=== PATIENT | female | born 1995 | race Caucasian/White ===

== ENCOUNTER → 2016-12-11 | Outpatient (CLI) | payer BC, OTHER ==
[~2016-12-11] MED LIST: ACETAMINOPHEN TAB 500 MG TAB PO NR; LORATADINE 10 MG TAB PO NR; SODIUM CHLORIDE 0.9% 250 ML in EMPTY BAG 1 BAG IV PRN; SODIUM CHLORIDE 0.9% 500 ML in EMPTY BAG 1 BAG IV PRN
[2016-12-11 11:07] VITALS: RESP 16; TEMP 98.3
[2016-12-11 12:43] VITALS: BP 118/65; PULSE 89
== END | disposition home or self-care (01) ==
LOC: PROCWHC3 10:53
PROVIDERS: ATTEND Internal Medicine Gastroenterology
DX: K51.90 Ulcerative colitis, unspecified, without complications (principal)
CPT/HCPCS: 96361; 96413; 96415; J1745

== ENCOUNTER → 2017-01-22 | Outpatient (CLI) | payer BC, OTHER ==
[~2017-01-22] MED LIST changes: -ACETAMINOPHEN TAB 500 MG TAB PO NR; -LORATADINE 10 MG TAB PO NR
[2017-01-22 11:47] VITALS: TEMP 98.5
[2017-01-22 12:23] VITALS: RESP 18
[2017-01-22 12:57] VITALS: BP 117/77; PULSE 68
== END | disposition home or self-care (01) ==
LOC: PROCWHC3 10:49
PROVIDERS: ATTEND Internal Medicine Gastroenterology
DX: K51.90 Ulcerative colitis, unspecified, without complications (principal)
CPT/HCPCS: 96361; 96413; 96415; J1745

== ENCOUNTER → 2017-03-05 | Outpatient (CLI) | payer BC, OTHER ==
[~2017-03-05] MED LIST changes: +ACETAMINOPHEN TAB 500 MG TAB PO ONE; +LORATADINE 10 MG TAB PO ONE
[2017-03-05 11:21] VITALS: TEMP 97.9
[2017-03-05 12:16] VITALS: RESP 18
[2017-03-05 12:47] VITALS: BP 138/98; PULSE 67
== END | disposition home or self-care (01) ==
LOC: PROCWHC3 10:53
PROVIDERS: ATTEND Internal Medicine Gastroenterology
DX: K51.90 Ulcerative colitis, unspecified, without complications (principal)
CPT/HCPCS: 96413; 96415; J1745

== ENCOUNTER → 2017-04-16 | Outpatient (CLI) | payer BC, OTHER ==
[2017-04-16 11:23] VITALS: TEMP 98
[2017-04-16 13:54] VITALS: BP 142/91; PULSE 67; RESP 16
== END | disposition home or self-care (01) ==
LOC: PROCWHC3 10:57
PROVIDERS: ATTEND Internal Medicine Gastroenterology
DX: K50.90 Crohn's disease, unspecified, without complications (principal)
CPT/HCPCS: 96413; 96415; J1745

== ENCOUNTER → 2017-04-28 | Outpatient (CLI) | payer BC, OTHER ==
[~2017-04-28] MED LIST changes: -ACETAMINOPHEN TAB 500 MG TAB PO ONE; +COSYNTROPIN 0.25 MG VIAL IVP ONE; -LORATADINE 10 MG TAB PO ONE
[2017-04-28 09:32] VITALS: BP 156/94; PULSE 59; RESP 16; TEMP 97.6
[2017-04-29 07:40] LABS: EBV - EA (IgG) 6.7 U/mL (<9.0); EBV - VCA (IgG) >750.0 U/mL (<18.0); EBV - VCA IgM 11.5 U/mL (<36.0)
[2017-05-05 14:57] LABS: Mis test requested (Blood) CATECHOL FRAC PLASMA
== END | disposition home or self-care (01) ==
LOC: PROCWHC3 09:02
PROVIDERS: ATTEND Family Medicine
DX: I10 Essential (primary) hypertension (principal); R53.82 Chronic fatigue, unspecified
CPT/HCPCS: 36415; 82306; 82384; 84439; 84443; 85652; 86663; 86664; 86665

== ENCOUNTER → 2017-05-28 | Outpatient (CLI) | payer BC, OTHER ==
[~2017-05-28] MED LIST changes: +ACETAMINOPHEN TAB 500 MG TAB PO ONE; -COSYNTROPIN 0.25 MG VIAL IVP ONE; +LORATADINE 10 MG TAB PO ONE
[2017-05-28 11:30] VITALS: TEMP 98.3
[2017-05-28 13:26] VITALS: BP 124/61; PULSE 72; RESP 20
== END | disposition home or self-care (01) ==
LOC: PROCWHC3 10:57
PROVIDERS: ATTEND Internal Medicine Gastroenterology
DX: K51.00 Ulcerative (chronic) pancolitis without complications (principal)
CPT/HCPCS: 96413; 96415; J1745

== ENCOUNTER → 2017-07-09 | Outpatient (CLI) | payer BC, OTHER ==
[~2017-07-09] MED LIST changes: -ACETAMINOPHEN TAB 500 MG TAB PO ONE; -LORATADINE 10 MG TAB PO ONE; -SODIUM CHLORIDE 0.9% 250 ML in EMPTY BAG 1 BAG IV PRN
[2017-07-09 11:23] VITALS: TEMP 98.3
[2017-07-09 12:34] VITALS: RESP 18
[2017-07-09 13:08] VITALS: BP 118/63; PULSE 91
== END | disposition home or self-care (01) ==
LOC: PROCWHC3 10:46
PROVIDERS: ATTEND Internal Medicine Gastroenterology
DX: K51.00 Ulcerative (chronic) pancolitis without complications (principal)
CPT/HCPCS: 96413; 96415

== ENCOUNTER → 2017-08-20 | Outpatient (CLI) | payer BC, OTHER ==
[~2017-08-20] MED LIST changes: +ACETAMINOPHEN TAB 500 MG TAB PO ONE; +LORATADINE 10 MG TAB PO ONE
[2017-08-20 11:12] VITALS: TEMP 97.7
[2017-08-20 12:33] VITALS: RESP 16
[2017-08-20 13:00] VITALS: BP 134/78; PULSE 83
== END | disposition home or self-care (01) ==
LOC: PROCWHC3 10:48
PROVIDERS: ATTEND Internal Medicine Gastroenterology
DX: K51.00 Ulcerative (chronic) pancolitis without complications (principal)
CPT/HCPCS: 96413; 96415; J1745

== ENCOUNTER → 2017-10-01 | Outpatient (CLI) | payer BC, OTHER ==
[~2017-10-01] MED LIST changes: -ACETAMINOPHEN TAB 500 MG TAB PO ONE; -LORATADINE 10 MG TAB PO ONE
[2017-10-01 11:34] VITALS: RESP 16; TEMP 98
[2017-10-01 12:59] VITALS: BP 148/91; PULSE 82
== END ==
LOC: PROCWHC3 10:54
PROVIDERS: ATTEND Internal Medicine Gastroenterology
DX: K51.00 Ulcerative (chronic) pancolitis without complications (principal)
CPT/HCPCS: 96413; 96415; J1745

== ENCOUNTER 2017-11-14 13:44 | Emergency (ER) | payer BC ==
[~2017-11-14 13:44] MED LIST changes: +SODIUM CHLORIDE 0.9% 1,000 ML BAG ONE; -SODIUM CHLORIDE 0.9% 500 ML in EMPTY BAG 1 BAG IV PRN
[2017-11-14] MEDS ORDERED: ONDANSETRON 4 MG/2 ML VIAL ONE (16:35)
[2017-11-14] MEDS ORDERED: ACETAMINOPHEN IV (For NPO) 1,000 MG/100 ML VIAL ONE (16:35)
[2017-11-14] MEDS ORDERED: KETOROLAC 30 MG/ML 1 ML VIAL ONE (16:35)
[2017-11-15 16:05] LABS: ALT 40 U/L (9-52); AST 26 U/L (14-36); Albumin 4.6 g/dL (3.5-5.0); Alkaline Phosphatase 133 U/L (38-126); Amylase 41 U/L (30-110); Anion Gap 14 mmol/L; Blood Urea Nitrogen 10 mg/dL (7-17); Calcium 10.1 mg/dL (8.4-10.2); Carbon Dioxide 21 mmol/L (22-30); Chloride 104 mmol/L (98-107); Glucose 106 mg/dL (74-99); Lipase 36 U/L (23-300); Potassium 4.2 mmol/L (3.5-5.1); Sodium 139 mmol/L (137-145); Total Bilirubin 0.6 mg/dL (0.2-1.3); Total Protein 8.4 g/dL (6.3-8.2)
[2017-11-15 16:15] LABS: Basophils % (A) 0 %; Eosinophils % (A) 0 %; HCT 42.8 % (34.0-46.0); HGB 14.3 gm/dL (11.4-16.0); Lymphocytes # (A) 0.9 k/uL (1.0-4.8); Lymphocytes % (A) 7 %; MCH 28.4 pg (25.0-35.0); MCHC 33.5 g/dL (31.0-37.0); MCV 84.8 fL (80.0-100.0); Mean Platelet Volume 7.2; Monocytes # (A) 0.2 k/uL (0-1.0); Monocytes % (A) 1 %; Neutrophils # (A) 11.2 k/uL (1.3-7.7); Neutrophils % (A) 90 %; Platelet Count 381 k/uL (150-450); RBC 5.04 m/uL (3.80-5.40); RDW 12.2 % (11.5-15.5); WBC 12.4 k/uL (3.8-10.6)
[2017-11-15 16:40] LABS: Amorphous Sediment,Urine Few /hpf; Appearance,Urine Turbid (Clear); Bacteria,Urine Many /hpf; Bilirubin,Urine Negative (Negative); Blood,Urine Negative (Negative); Color,Urine Yellow; Glucose,Urine (UA) Negative (Negative); Ketones,Urine 1+ (Negative); Leukocyte Esterase,Urine Negative (Negative); Mucus,Urine Rare /hpf; Nitrite,Urine Negative (Negative); Protein,Urine 1+ (Negative); RBC,Urine 7 /hpf (0-5); Specific Gravity,Urine 1.021 (1.001-1.035); Squamous Epithelial Cell,Urine 4 /hpf (0-4); Urobilinogen,Urine <2.0 mg/dL (<2.0)
--- NOTE | 2017-12-23 09:54 | XR ---
EXAMINATION TYPE: XR chest 2V DATE OF EXAM: 12/23/2017 COMPARISON: NONE HISTORY: Headaches, dizziness, and weakness TECHNIQUE: Frontal and lateral views of the chest are obtained. FINDINGS: There is no focal air space opacity, pleural effusion, or pneumothorax seen. The cardiac silhouette size is within normal limits. The osseous structures are intact. IMPRESSION: No acute cardiopulmonary process.
== END 2017-11-14 18:37 | disposition home or self-care (01) ==
LOC: EC 13:44
DX: R42 Dizziness and giddiness (principal); R51 Headache; R11.2 Nausea with vomiting, unspecified; I10 Essential (primary) hypertension; Z79.899 Other long term (current) drug therapy
CPT/HCPCS: 36415; 80053; 81001; 81025; 82150; 83690; 85025; 96361; 96365; 96375; 99284

== ENCOUNTER → 2019-04-01 | Outpatient (CLI) | payer BC ==
--- NOTE | 2019-04-01 15:07 | US ---
EXAMINATION TYPE: US thyroid st tissue head/neck DATE OF EXAM: 04/01/2019 COMPARISON: MRI cervical spine June 13, 2014. CLINICAL HISTORY: E04.9 GOITER. GLAND SIZE: Right Lobe: 4.4 x 1.2 x 1.3 cm Overall Parenchyma: homogenous Left Lobe: 4.5 x 1.1 x 1.3 cm Overall Parenchyma: homogeneous Isthmus Thickness: 0.2 cm NODULES RIGHT: # of nodules measured on right: 0 LEFT: # of nodules measured on left: 0 ISTHMUS: # of nodules measured in the isthmus: 0 Bilateral neck scanned, no evidence of lymphadenopathy. There is homogeneous normal-sized thyroid without discrete nodules. Findings correlate with 2014 MRI. IMPRESSION: Unremarkable study.
== END | disposition home or self-care (01) ==
LOC: RADUSWWP 14:33
PROVIDERS: ATTEND Family Medicine
DX: E04.9 Nontoxic goiter, unspecified (principal)
CPT/HCPCS: 76536

== ENCOUNTER 2024-10-13 08:42 | Emergency (ER) | payer BC ==
[2024-10-13 08:50] VITALS: TEMP 98
--- NOTE | 2024-10-13 09:06 | ED ---
Skin/Abscess/FB HPI - General Source: patient, family, RN notes reviewed Mode of arrival: ambulatory Limitations: no limitations - History of Present Illness MD complaint: rash <Agustina Chen - Last Filed: 10/13/24 09:05> <Lizbeth Ambriz - Last Filed: 10/20/24 17:11> - General Chief complaint: Skin/Abscess/Foreign Body Stated complaint: blisters/burning on hands and feet Time Seen by Provider: 10/13/24 09:00 - History of Present Illness Initial comments: Quick Note: This is a 29-year-old female who presents to the emergency department for blisters on her hands, feet, and mouth. States that it started about 4 days ago. She did get a note from the school saying that hand, foot, and mouth were going around. The blisters are described as painful. (Agustina Chen) 29-year-old female presents to the emergency department for rash on hands, feet, mouth. She reports that has been going on for 4 days. She does report that it is very painful. Denies any itching. Denies any sloughing of the skin. Denies recent fever, chills. She does report that her daughter had 1 lesion that was similar. She also notes that he gvxi-vwva-okp-mouth is going around her daughter school. She does report that she is on Humira. (Lizbeth Ambriz) - Related Data Home Medications Medication Instructions Recorded Confirmed inFLIXimab [Remicade] 500 mg IVPB DIRECTED 10/01/16 11/15/17 amLODIPine [Norvasc] 10 mg PO DAILY 11/15/17 11/15/17 Previous Rx's Medication Instructions Recorded Cephalexin [Keflex] 500 mg PO Q6HR #40 cap 10/13/24 HYDROcodone/APAP 5-325MG [[place] 5] 1 each PO Q6HR PRN #12 tab 10/13/24 Allergies Allergy/AdvReac Type Severity Reaction Status Date / Time No Known Allergies Allergy Verified 10/13/24 08:50 Review of Systems ROS Other: All systems not noted in ROS Statement are negative. <Agustina Chen - Last Filed: 10/13/24 09:05> ROS Other: All systems not noted in ROS Statement are negative. <Lizbeth Ambriz - Last Filed: 10/20/24 17:11> ROS Statement: Those systems with pertinent positive or pertinent negative responses have been documented in the HPI. Past Medical History Past Medical History: No Reported History History of Any Multi-Drug Resistant Organisms: None Reported Past Surgical History: No Surgical Hx Reported Past Anesthesia/Blood Transfusion Reactions: No Reported Reaction Past Psychological History: No Psychological Hx Reported Smoking Status: Never smoker Past Alcohol Use History: None Reported Past Drug Use History: None Reported - Past Family History Mother Family Medical History: Musculoskeletal Disorder Brother(s) Family Medical History: Seizure Disorder <Agustina Chen - Last Filed: 10/13/24 09:05> General Exam Limitations: no limitations <Agustina Chen - Last Filed: 10/13/24 09:05> Limitations: no limitations General appearance: alert, in no apparent distress Head exam: Present: atraumatic, normocephalic, normal inspection Eye exam: Present: normal appearance, PERRL, EOMI. Absent: scleral icterus, conjunctival injection, periorbital swelling ENT exam: Present: normal exam, mucous membranes moist Respiratory exam: Present: normal lung sounds bilaterally. Absent: respiratory distress, wheezes, rales, rhonchi, stridor Cardiovascular Exam: Present: regular rate, normal rhythm, normal heart sounds. Absent: systolic murmur, diastolic murmur, rubs, gallop, clicks Extremities exam: Present: normal inspection, full ROM, normal capillary refill. Absent: tenderness, pedal edema, joint swelling, calf tenderness Neurological exam: Present: alert, oriented X3 Psychiatric exam: Present: normal affect, normal mood Skin exam: Present: warm, dry, rash (Erythematous maculopapular rash with vesicles on the hands, feet, circumorally). Absent: normal color <Lizbeth Ambriz - Last Filed: 10/20/24 17:11> - General Exam Comments Initial Comments: Visual Physical Exam Vital signs reviewed General: Well-appearing, nontoxic, no acute distress. Head: Normocephalic, atraumatic Eyes: PERRLA, EOMI ENT: Airway patent Chest: Nonlabored breathing Skin: No visual rash, normal skin tone Neuro: Alert and oriented 3 Musculoskeletal: No gross abnormalities (Agustina Chen) Course Vital Signs 10/13/24 10/13/24 08:48 11:54 Temperature 98 F Pulse Rate 116 H 99 Respiratory 18 20 Rate Blood Pressure 169/100 158/97 O2 Sat by Pulse 98 98 Oximetry Medical Decision Making <Agustina Chen - Last Filed: 10/13/24 09:05> <Lizbeth Ambriz - Last Filed: 10/20/24 17:11> - Medical Decision Making I performed the QuickNote portion of this chart. Signed Agustina Chen PA-C. (Agustina Chen) Was pt. sent in by a medical professional or institution (JOHANNE Smith, TECHNOLOGY MANAGER, urgent care, hospital, or long term...) When possible be specific @ -No Did you speak to anyone other than the patient for history (EMS, parent, family, police, friend...)? What history was obtained from this source @ -No Did you review nursing and triage notes (agree or disagree)? Why? @ -I reviewed and agree with nursing and triage notes Were old charts reviewed (outside hosp., previous admission, EMS record, old EKG, old radiological studies, urgent care reports/EKG's, long term records)? Report findings @ -No old charts were reviewed Differential Diagnosis (chest pain, altered mental status, abdominal pain women, abdominal pain men, vaginal bleeding, weakness, fever, dyspnea, syncope, headache, dizziness, GI bleed, back pain, seizure, CVA, palpatations, mental health, musculoskeletal)? @ -Gnox-grfb-vbf-mouth disease, impetigo, cellulitis, syphilis, this list is not all inclusive EKG interpreted by me (3pts min.). @ -None X-rays interpreted by me (1pt min.). @ -None done CT interpreted by me (1pt min.). @ -None done U/S interpreted by me (1pt. min.). @ -None done What testing was considered but not performed or refused? (CT, X-rays, U/S, labs)? Why? @ -None What meds were considered but not given or refused? Why? @ -None Did you discuss the management of the patient with other professionals (professionals i.e. , JOHANNE, TECHNOLOGY MANAGER, lab, RT, psych nurse, social media manager, maintenance repairman, teacher, trust officer, lining caser)? Give summary @ -No Was smoking cessation discussed for >3mins.? @ -No Was critical care preformed (if so, how long)? @ -No Were there social determinants of health that impacted care today? How? (Homelessness, low income, unemployed, alcoholism, drug addiction, transportation, low edu. Level, literacy, decrease access to med. care, fci, rehab)? @ -No Was there de-escalation of care discussed even if they declined (Discuss DNR or withdrawal of care, Hospice)? DNR status @ -No What co-morbidities impacted this encounter? (DM, HTN, Smoking, COPD, CAD, Cancer, CVA, ARF, Chemo, Hep., AIDS, mental health diagnosis, sleep apnea, morbid obesity)? @ -None Was patient admitted / discharged? Hospital course, mention meds given and route, prescriptions, significant lab abnormalities, going to OR and other pertinent info. @ -Discharge. Patient presented to the emergency department for evaluation of rash on hands, feet, and around mouth. Patient reports that this has been present for 4 days. She states that it is painful. Patient was provided medication for pain control while in the emergency department. On examination, patient appears to have kdrh-hwjb-mku-mouth disease. She also has some lesions surrounding her mouth that are consistent with impetigo. Patient is currently on immunosuppressive drugs for IBD. Because of this, patient will be started on Keflex for bacterial coverage. Patient also provided short-term dose of narcotic medication for pain control. Patient will be discharged home. Instructed on treatment plan. She is understanding agreeable with this plan. Patient stable at time of discharge. Case discussed with Dr. Kelly. Undiagnosed new problem with uncertain prognosis? @ -No Drug Therapy requiring intensive monitoring for toxicity (Heparin, Nitro, Insulin, Cardizem)? @ -No Were any procedures done? @ -No Diagnosis/symptom? @ -Axem-ihoz-kqx-mouth disease Acute, or Chronic, or Acute on Chronic? @ -Acute Uncomplicated (without systemic symptoms) or Complicated (systemic symptoms)? @ -Uncomplicated Side effects of treatment? @ -No Exacerbation, Progression, or Severe Exacerbation? @ -No Poses a threat to life or bodily function? How? (Chest pain, [place], [place], pneumonia, PE, COPD, DKA, ARF, appy, cholecystitis, CVA, Diverticulitis, Homicidal, Suicidal, threat to staff... and all critical care pts) @ -No (Lizbeth Ambriz) Disposition <Agustina Chen - Last Filed: 10/13/24 09:05> Is patient prescribed a controlled substance at d/c from ED?: Yes When asked, does pt state using other controlled substances?: No If prescribed controlled substance>3 days was MAPS reviewed?: Prescribed <3 Days <Lizbeth Ambriz - Last Filed: 10/20/24 17:11> Clinical Impression: Hand, foot and mouth disease, Impetigo Disposition: HOME SELF-CARE Condition: Stable Instructions (If sedation given, give patient instructions): Impetigo (ED), Hand, Foot, and Mouth Disease (ED) Additional Instructions: Please follow up with your primary care provider. Return to the emergency department for new or worsening symptoms. Prescriptions: Cephalexin [Keflex] 500 mg PO Q6HR #40 cap HYDROcodone/APAP 5-325MG [[place] 5] 1 each PO Q6HR PRN #12 tab PRN Reason: Pain Referrals: Konrad Peguero MD [Primary Care Provider] - 1-2 days
[2024-10-13] MEDS: KETOROLAC 15 MG/ML 1 ML VIAL IM STA (11:10)
[2024-10-13] MEDS: HYDROmorphone 1 MG/ML 1 ML SYRINGE IM STA (11:11)
[2024-10-13 11:56] VITALS: BP 158/97; PULSE 99; RESP 20
== END 2024-10-13 11:56 | disposition home or self-care (01) ==
LOC: EC 08:42
DX: L01.00 Impetigo, unspecified (principal); B08.4 Enteroviral vesicular stomatitis with exanthem
CPT/HCPCS: 99283; 96372 ×2; J1171; J1885

== ENCOUNTER → 2024-12-10 | Outpatient (CLI) | payer BC ==
[2024-12-10 19:36] LABS: ALT 9 U/L (8-44); AST 11 U/L (13-35); Albumin/Globulin Ratio 1.33 Ratio (1.60-3.17); Alkaline Phosphatase 90 U/L (41-126); BUN/Creat Ratio 17.86 Ratio (12.00-20.00); Blood Urea Nitrogen 12.5 mg/dL (9.0-27.0); Calcium 9.5 mg/dL (8.7-10.3); Carbon Dioxide 24.4 mmol/L (21.6-31.8); Chloride 106 mmol/L (96-109); Glucose 90 mg/dL (70-110); Potassium 4.6 mmol/L (3.5-5.5); Sodium 142 mmol/L (135-145); Total Bilirubin <0.2 mg/dL (0.3-1.2)
== END | disposition home or self-care (01) ==
LOC: LABWHC1 13:02
PROVIDERS: ATTEND Internal Medicine Gastroenterology
DX: K51.90 Ulcerative colitis, unspecified, without complications (principal)
CPT/HCPCS: 36415; 80053; 85025; 85652; 86140; 86480

== ENCOUNTER 2024-12-17 08:30 | Day surgery (SDC) | payer BC ==
[2024-12-15 13:42] VITALS: BMI 48.2
[2024-12-17] MEDS: IV FLUID CONTINUATION 1,000 ML IV ONE (09:03)
[2024-12-17 09:38] VITALS: TEMP 98
[2024-12-17 09:40] LABS: Glucose,Whole Blood 115 mg/dL (70-110)
[2024-12-17] MEDS: LACTATED RINGERS 1,000 ML IV SCH (09:44)
[2024-12-17] MEDS: LABETALOL SYRINGE 5 MG/ML (4 ML SYR) IVP STA (09:46)
[2024-12-17] MEDS ORDERED: LIDOCAINE 1% INJ 10MG/ML (20 ML MDV) ONE (10:23)
[2024-12-17] MEDS ORDERED: PROPOFOL 10 MG/ML 20 ML VIAL IV ONE (10:23)
[2024-12-17] MEDS ORDERED: LABETALOL 5 MG/ML VIAL MDV ONE (10:23)
--- NOTE | 2024-12-17 10:42 | P.PCN ---
Date of Procedure: 12/17/24 Procedure(s) Performed: BRIEF HISTORY: Patient is a 29-year-old pleasant white female scheduled for an elective colonoscopy as a part of screening for longstanding history of ulcerative colitis diagnosed in 2014. She was on Remicade in the past until 2020. She is presently on Humira every 2 weeks since March 2022. Recently had a flareup for the last 2 months and has been on prednisone 40 mg daily was started 2 weeks ago. Has 5-6 bowel movements with the patient blood in the stool PROCEDURE PERFORMED: Colonoscopy with random biopsies. PREOPERATIVE DIAGNOSIS: Screening for longstanding history of ulcerative colitis. IV sedation per Anesthesia. PROCEDURE: After informed consent was obtained, the patient, was brought into the endoscopy unit. IV sedation was administered by Anesthesia under continuous monitoring. Digital rectal examination was normal. Initially the Olympus CF-160 flexible video colonoscope was then inserted in the rectum, gradually advanced into the cecum without any difficulty. Careful examination was performed as the scope was gradually being withdrawn. Ileocecal valve and the appendiceal orifice were visualized and appeared normal. Prep was excellent. Mucosa of the cecum, ascending colon, and mucosal erythema and friability consistent with active colitis and biopsies were done from this area. Mucosa transverse colon, proximal descending colon appeared normal. Mucosa of the distal descending colon, sigmoid colon, and rectum had mucosal erythema, friability, granularity, spontaneously oozing with exudates up to 50 cm from the anal verge consistent with active colitis. Multiple random biopsies were done from the rectum to cecum at every 10 cm intervals.. Retroflexion was performed in the rectum and no lesions were seen. The patient tolerated the procedure well. IMPRESSION: Active colitis with mucosal erythema and friability noted in the cecum and in the ascending colon s/p multiple biopsies Transverse colon and proximal descending colon appeared normal Active colitis involving the rectum sigmoid colon and distal descending colon up to 50 cm from anal verge with mucosal erythema friability, granularity and spontaneous oozing status post multiple biopsies RECOMMENDATIONS: Findings of this examination were discussed with the patient as well as her family. She was advised to continue with Humira every 2 weeks, continue on prednisone 40 mg daily and taper by 5 mg every 2 weeks. In the meantime we will obtain adalimumab levels and adjust the dose of Humira if needed. Follow-up in the office in 2 weeks..
[2024-12-17 10:47] VITALS: RESP 16
[2024-12-17 11:00] VITALS: BP 150/88; PULSE 72
== END 2024-12-17 11:29 | disposition home or self-care (01) ==
LOC: ORWHC2ENDO 08:30
PROVIDERS: ATTEND Internal Medicine Gastroenterology
DX: K51.90 Ulcerative colitis, unspecified, without complications (principal)
CPT/HCPCS: 81025; 84703; 45380; J2003; J2704; J1920 ×2; 88305

== ENCOUNTER → 2024-12-24 | Outpatient (CLI) | payer BC ==
[2024-12-25 01:53] LABS: Basophils # (A) 0.05 X 10*3/uL (0.00-0.10); Basophils % (A) 0.4 %; Eosinophils # (A) 0.52 X 10*3/uL (0.04-0.35); Eosinophils % (A) 3.9 %; HCT 37.6 % (37.2-46.3); HGB 11.9 g/dL (12.0-15.0); Lymphocytes # (A) 4.56 X 10*3/uL (0.90-5.00); Lymphocytes % (A) 33.9 %; MCH 27.4 pg (27.0-32.0); MCHC 31.6 g/dL (32.0-37.0); MCV 86.4 FL (80.0-97.0); Mean Platelet Volume 11.1 FL (9.5-12.2); Monocytes # (A) 1.19 X 10*3/uL (0.20-1.00); Monocytes % (A) 8.9 %; NRBC Per 100 WBC 0 X 10*3/uL (0.00-0.01); Neutrophils # (A) 7.07 X 10*3/uL (1.80-7.70); Neutrophils % (A) 52.5 %; Platelet Count 445 X 10*3/uL (140-440); RBC 4.35 X 10*6/uL (4.10-5.20); RDW 13.2 % (11.5-14.5); WBC 13.44 X 10*3/uL (4.50-10.00)
[2024-12-25 02:02] LABS: Erythrocyte Sedimentation Rate 38 mm/Hr (0-20)
== END | disposition home or self-care (01) ==
LOC: LABWHC1 15:59
PROVIDERS: ATTEND Internal Medicine Gastroenterology
DX: K51.90 Ulcerative colitis, unspecified, without complications (principal)
CPT/HCPCS: 36415; 85025; 85652

== ENCOUNTER → 2025-02-25 | Outpatient (CLI) | payer BC ==
[2025-02-25 16:32] LABS: Basophils # (A) 0.03 X 10*3/uL (0.00-0.10); Basophils % (A) 0.4 %; Eosinophils # (A) 0.67 X 10*3/uL (0.04-0.35); Eosinophils % (A) 8.7 %; HCT 39.7 % (37.2-46.3); HGB 12.8 g/dL (12.0-15.0); Lymphocytes # (A) 2.19 X 10*3/uL (0.90-5.00); Lymphocytes % (A) 28.6 %; MCH 27.2 pg (27.0-32.0); MCHC 32.2 g/dL (32.0-37.0); MCV 84.3 FL (80.0-97.0); Mean Platelet Volume 11.5 FL (9.5-12.2); Monocytes # (A) 0.56 X 10*3/uL (0.20-1.00); Monocytes % (A) 7.3 %; NRBC Per 100 WBC 0 X 10*3/uL (0.00-0.01); Neutrophils # (A) 4.19 X 10*3/uL (1.80-7.70); Neutrophils % (A) 54.7 %; Platelet Count 405 X 10*3/uL (140-440); RBC 4.71 X 10*6/uL (4.10-5.20); RDW 13.1 % (11.5-14.5); WBC 7.66 X 10*3/uL (4.50-10.00)
[2025-02-25 16:44] LABS: ALT 10 U/L (8-44); AST 13 U/L (13-35); Albumin 3.9 g/dL (3.8-4.9); Alkaline Phosphatase 94 U/L (41-126); BUN/Creat Ratio 17.43 Ratio (12.00-20.00); Blood Urea Nitrogen 12.2 mg/dL (9.0-27.0); Calcium 9.2 mg/dL (8.7-10.3); Chloride 106 mmol/L (96-109); Glucose 97 mg/dL (70-110); Potassium 4.6 mmol/L (3.5-5.5); Sodium 139 mmol/L (135-145); Total Bilirubin 0.3 mg/dL (0.3-1.2); Total Protein 6.9 g/dL (6.2-8.2)
== END | disposition home or self-care (01) ==
LOC: LABWHC1 08:46
PROVIDERS: ATTEND Nurse Practitioner Family
DX: K51.90 Ulcerative colitis, unspecified, without complications (principal)
CPT/HCPCS: 36415; 80053; 85025

== ENCOUNTER → 2025-04-08 | Outpatient (CLI) | payer BC ==
--- NOTE | 2025-04-10 16:54 | MR ---
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 COMPARISON: MRI brain 04/14/2014, CT brain 04/07/2014. TECHNIQUE: Multi planar, multi sequence imaging was performed through the brain. The patient was then given 13.5 cc of Gadobutrol intravenously and multi planar, T1 fat-saturation images were obtained. FINDINGS: The latham-white junctions, ventricular system, basal cisterns appear unremarkable. Age-appropriate cer ebral parenchymal volume. Diffusion-weighted imaging shows no evidence of restricted diffusion to sug gest acute/subacute infarct. Intracranial arterial flow voids are maintained. Midline structures show no abnormality. No FLAIR signal abnormalities within the cerebral parenchyma. The susceptibility callum ghted images do not reveal any evidence for micro-hemorrhage. After administration of gadolinium, no abnormal enhancement is seen. The bone marrow signal is within normal limits. The globes are unremarkable. The optic nerves appear symmetric and unremarkable. No MRI evidence for papilledema. The pituitary gland appears unremarkabl e. Mild mucosal thickening in the ethmoid sinuses. Right maxillary sinus 1.2 cm probable mucous reten tion cyst. Mild mucosal thickening of the left maxillary sinus with a 2.1 cm probable mucous retentio n cyst. Moderate mucosal thickening of the left sphenoid sinus. IMPRESSION: 1. No evidence of intracranial mass, acute/subacute infarct, or abnormal enhancement. 2. Paranasal sinus disease. [facility], , 04/10/2025 4:52 PM
== END | disposition home or self-care (01) ==
LOC: RADMRIMAIN 21:15
PROVIDERS: ATTEND Ophthalmology
DX: J34.89 Other specified disorders of nose and nasal sinuses (principal); R51.9 Headache, unspecified; H47.333 Pseudopapilledema of optic disc, bilateral
CPT/HCPCS: 70553; A9585

== ENCOUNTER → 2025-06-03 | Outpatient (CLI) | payer BC ==
--- NOTE | 2025-06-03 14:18 | US ---
EXAMINATION TYPE: US thyroid st tissue head/neck DATE OF EXAM: 06/03/2025 COMPARISON: US 2019 CLINICAL INDICATION: Female, 29 years old with history of R59.0 LOCALIZED ENLARGED LYMPH NODES; TECHNIQUE: Grayscale and color Doppler imaging of the thyroid gland. FINDINGS: GLAND SIZE: Right Lobe: 5.1 x 1.2 x 1.9 cm Overall Parenchyma: homogeneous Left Lobe: 4.6 x 1.2 x 1.5 cm Overall Parenchyma: homogeneous Isthmus Thickness: 0.2 cm NODULES RIGHT: # of nodules measured on right: 0 LEFT: # of nodules measured on left: 0 ISTHMUS: # of nodules measured in the isthmus: 0 Bilateral neck scanned, no evidence of lymphadenopathy. IMPRESSION: No thyroid nodules. TI-RADS assessment score and recommendation for follow-up based on appropriate scoring and treatment protocols. TR1 Benign No FNA TR2 Not suspicious No FNA TR3: If nodule size is ? 2.5 cm, FNA is recommended. If nodule size is ? 1.5 cm, follow-up imaging at 1, 3, and 5 years is recommended. TR4: If nodule size is ? 1.5 cm, FNA is recommended. If nodule size is ? 1.0 cm, follow-up imaging at 1, 2, 3, and 5 years is recommended. TR5: If nodule size is ? 1.0 cm, FNA is recommended. If nodule size is ? 0.5 cm, annual follow-up for up to 5 years is recommended. TR 1 thyroid nodules have a 0.3 % risk of malignancy. TR 2 thyroid nodules have a 1.5 % risk of malignancy. TR 3 thyroid nodules have a 4.8 % risk of malignancy. TR 4 thyroid nodules have a 9.1 % risk of malignancy. TR 5 thyroid nodules have a 35 % risk of malignancy. [email or web address] [facility], , 06/03/2025 2:15 PM
== END | disposition home or self-care (01) ==
LOC: RADUSWWP 12:37
PROVIDERS: ATTEND Family Medicine
DX: R59.0 Localized enlarged lymph nodes (principal)
CPT/HCPCS: 76536